=== PATIENT | female | born 1990 | race Two or more races ===

== ENCOUNTER 2022-07-16 14:58 | Emergency (ER) | payer MEDICAID, OTHER ==
[~2022-07-16] VITALS: Ht 157.5 cm; Wt 65.6 kg
[2022-07-16 17:00] VITALS: BP 130/69
[2022-07-16 17:12] LABS: Urine Bacteria NONE SEEN /hpf (None Seen); Urine Blood 2+ /uL (Negative); Urine Mucus FEW (None Seen); Urine Specific Gravity 1.014 (1.001-1.035); Urine WBC 74 /hpf (0 - 5)
[2022-07-16] MEDS ORDERED: PHENAZOPYRIDINE HCL 100 MG TAB PO ONE (17:30)
[2022-07-16] MEDS ORDERED: cefTRIAXone SOD 1,000 MG VL IM ONE (17:30)
[2022-07-16] MEDS ORDERED: BACDST PO (17:49)
[2022-07-16] MEDS ORDERED: PHEN200T16 PO (17:49)
== END 2022-07-16 18:00 | disposition home or self-care (01) ==
LOC: ER 15:03
DX: N39.0 Urinary tract infection, site not specified (principal); Z79.899 Other long term (current) drug therapy
CPT/HCPCS: 81001; 96372; 99283; J0696

== ENCOUNTER 2022-07-30 22:13 | Emergency (ER) | payer MEDICAID ==
[~2022-07-30] VITALS: Ht 152.4 cm; Wt 67.7 kg
[~2022-07-30 22:13] MED LIST: BACDST PO; PHEN200T16 PO
[2022-07-30 23:35] VITALS: BP 124/91
[2022-07-31 00:51] LABS: Urine Bacteria FEW /hpf (None Seen); Urine Blood 2+ /uL (Negative); Urine Specific Gravity 1.005 (1.001-1.035); Urine WBC 42 /hpf (0 - 5)
[2022-07-31] MEDS ORDERED: NITR-87 PO (02:10)
== END 2022-07-31 02:14 | disposition home or self-care (01) ==
LOC: ER 22:13
DX: N39.0 Urinary tract infection, site not specified (principal); Z79.899 Other long term (current) drug therapy
CPT/HCPCS: 81001

== ENCOUNTER 2023-05-28 03:59 | Emergency (ER) | payer MEDICAID ==
[~2023-05-28] VITALS: Ht 157.5 cm; Wt 64.4 kg
[~2023-05-28 03:59] MED LIST changes: +NITR-87 PO; +PHEN-922 PO; -PHEN200T16 PO
[2023-05-28] MEDS ORDERED: IBUP-1454 PO (06:51)
[2023-05-28] MEDS ORDERED: AZIT-81 PO (06:51)
[2023-05-28 07:45] VITALS: BP 124/78; PULSE 102; RESP 18; TEMP 99.8; O2SAT 96
== END 2023-05-28 07:51 | disposition home or self-care (01) ==
LOC: ER 03:59
DX: J03.90 Acute tonsillitis, unspecified (principal); Z79.899 Other long term (current) drug therapy; Z98.890 Other specified postprocedural states